=== PATIENT | female | born 1980 | race Caucasian/White ===

== ENCOUNTER 2018-08-22 14:31 | Emergency (ER) | payer SELFPAY ==
[~2018-08-22] VITALS: Ht 170.2 cm; Wt 139.7 kg
[2018-08-22] MEDS ORDERED: IV NORMAL SALINE 500ML 500 ML IV SCH (14:45)
--- NOTE | 2018-08-22 14:53 | PHYS DOC ---
Past History Past Medical History: Asthma Past Surgical History: , Tubal ligation Smoking: Cigarettes Alcohol Use: None Drug Use: None Adult General Chief Complaint Chief Complaint: VAGINAL BLEEDING HPI HPI Patient is a 38 year old female who presents with vaginal bleeding. This is been getting worse over the past 4 days. Patient has a history of endometriosis and so has irregular and occasionally heavy vaginal bleeding however this is the worst in both duration as well as volume that it has ever been. Patient denies being on any control, denies being on any blood thinners to include NSAIDs. She reports feeling lightheaded and weak with standing up. Has not had any syncopal event. Denies any rashes or bruising.[] Review of Systems Review of Systems Constitutional: Denies fever or chills [] Eyes: Denies change in visual acuity, redness, or eye pain [] HENT: Denies nasal congestion or sore throat [] Respiratory: Denies cough or shortness of breath [] Cardiovascular: No chest pain or palpitations[] GI: Denies abdominal pain, nausea, vomiting, bloody stools or diarrhea [] : Denies dysuria or hematuria, see history of present illness[] Musculoskeletal: Denies back pain or joint pain [] Integument: Denies rash or skin lesions [] Neurologic: Denies headache, focal weakness or sensory changes [] Endocrine: Denies polyuria or polydipsia [] All other systems were reviewed and found to be within normal limits, except as documented in this note. Current Medications Current Medications Current Medications Medications (Trade) Dose Ordered Sig/[facility] Start Time Stop Time Status Last Admin Dose Admin Sodium Chloride 500 ml @ 500 mls/hr Q1H 08/22/18 14:45 UNV Physical Exam Physical Exam Constitutional: Well developed, well nourished, mild discomfort, non-toxic appearance. [] HENT: Normocephalic, atraumatic, bilateral external ears normal, oropharynx moist, no oral exudates, nose normal. [] Eyes: PERRLA, EOMI, conjunctiva normal, no discharge. [] Neck: Normal range of motion, no tenderness, supple, no stridor. [] Cardiovascular:Heart rate regular rhythm, no murmur [] Lungs & Thorax: Bilateral breath sounds clear to auscultation [] Abdomen: Bowel sounds normal, soft, no tenderness, no masses, no pulsatile masses. : External genitalia: Normal, no abscess. Vaginal vault: Blood and clot in the vault. This was evacuated. Cervix, retroflexed cervix, slow trickle of blood from the cervix,[] Skin: Warm, dry, no erythema, no rash, pale color. [] Back: No tenderness, no CVA tenderness. [] Extremities: No tenderness, no cyanosis, no clubbing, ROM intact, no edema. [] Neurologic: Alert and oriented X 3, normal motor function, normal sensory function, no focal deficits noted. [] Psychologic: Affect normal, judgement normal, mood normal. [] EKG EKG [] Radiology/Procedures Radiology/Procedures Pelvic and transvaginal ultrasound History: Heavy menstrual bleeding Comparison: None. Findings: Multiple transabdominal sonographic images of the pelvis are submitted. Uterus measured 13.1 x 7.3 x 6.7 cm. Ovaries are not seen. Transvaginal ultrasound: Multiple transvaginal sonographic images of the pelvis are submitted. No free fluid is demonstrated. There is nabothian cysts. Endometrium is thickened about 3.2 cm, heterogeneous appearance. Right ovary measured 3.7 x 2.7 x 2.2 cm with normal low resistance vascularity. Left ovary could not be visualized. Impression: 1. There is thickened endometrium about 3.7 cm, could be due to hyperplasia, neoplasm not excludable. Component of echogenicity in the endometrial cavity may be due to blood products. 2. Uterus is enlarged. Left ovary could not be visualized.[] Course & Med Decision Making Course & Med Decision Making Pertinent Labs and Imaging studies reviewed. (See chart for details) ED course: Patient arrived, was placed in bed, tolerated exam well. Due to the bleeding and the tachycardia patient was typed and screened for blood products and she is willing to receive them. She was given a small bolus of IV fluids for the elevated heart rate. This didn't improve her heart rate to the 90s to low 100s. After the return of the lab and imaging findings these were discussed with the patient as well as consultation was made with [employer]. This consultation process was complicated by a personal and coverage issues and ultimately contacted the hospitalist after the [employer]AL[employer] MANAGER wanted the patient reevaluated in [facility] ER when appropriate and equivalent workup had been completed here at [facility]. The hospitalist service graciously accepted the patient. However at approximately 1730 new Information came across that the patient would be directly admitted to the operating room. Patient has been kept nothing by mouth during her emergency department stay. Medical decision making: This appears to be a case of heavy vaginal bleeding that has decreased the patient's hemoglobin today to 8.5. She needs further resources than are available at [facility], specifically [facility], and so has been transferred to a higher level of care.[] Dragon Disclaimer Dragon Disclaimer This electronic medical record was generated, in whole or in part, using a voice recognition dictation system. Departure Departure: Impression: Primary Impression: Vaginal bleeding Additional Impression: Anemia Disposition: 05 XFER OTHER Problem Qualifiers Additional Impression: Anemia Anemia type: unspecified type Qualified Codes: D64.9 - Anemia, unspecified MATT COOL DO Aug 22, 2018 14:53
[2018-08-22 15:05] LABS: BASO # 0.1 x10^3/uL (0.0-0.2); BASO % 1 % (0-3); EOS # 0.2 x10^3/uL (0.0-0.7); EOS % 1 % (0-3); HEMATOCRIT 25.2 % (36.0-47.0); HEMOGLOBIN 8.5 g/dL (12.0-15.5); LYMPH # 3.6 x10^3/uL (1.0-4.8); LYMPH % 25 % (24-48); MEAN CORPUSCULAR HEMOGLOBIN 29 pg (25-35); MEAN CORPUSCULAR HGB CONC 34 g/dL (31-37); MEAN CORPUSCULAR VOLUME 86 fL (79-100); MONO # 0.8 x10^3/uL (0.0-1.1); MONO % 5 % (0-9); NEUT # 9.7 x10^3uL (1.8-7.7); NEUT % 67 % (31-73); PLATELET COUNT 538 x10^3/uL (140-400); RED BLOOD COUNT 2.93 x10^6/uL (3.50-5.40); RED CELL DISTRIBUTION WIDTH 13.2 % (11.5-14.5); WHITE BLOOD COUNT 14.3 x10^3/uL (4.0-11.0)
[2018-08-22 15:20] LABS: PREG TEST PT QUAL NEGATIVE (NEG)
--- NOTE | 2018-08-22 15:47 | RAD ---
Pelvic and transvaginal ultrasound History: Heavy menstrual bleeding Comparison: None. Findings: Multiple transabdominal sonographic images of the pelvis are submitted. Uterus measured 13.1 x 7.3 x 6.7 cm. Ovaries are not seen. Transvaginal ultrasound: Multiple transvaginal sonographic images of the pelvis are submitted. No free fluid is demonstrated. There is nabothian cysts. Endometrium is thickened about 3.2 cm, heterogeneous appearance. Right ovary measured 3.7 x 2.7 x 2.2 cm with normal low resistance vascularity. Left ovary could not be visualized. Impression: 1. There is thickened endometrium about 3.7 cm, could be due to hyperplasia, neoplasm not excludable. Component of echogenicity in the endometrial cavity may be due to blood products. 2. Uterus is enlarged. Left ovary could not be visualized. Electronically signed by: Jose Ireland MD (08/22/2018 3:43 PM) [id number]
[2018-08-22 16:00] VITALS: BP 145/80
[2018-08-22 16:09] LABS: BILIRUBIN,URINE NEG (NEG); CLARITY,URINE CLEAR; COLOR,URINE YELLOW; GLUCOSE,URINE NEG (NEG); NITRITE,URINE NEG (NEG); UROBILINOGEN,URINE 1 mg/dL (0.2 mg/dL)
[2018-08-22 16:10] LABS: BACTERIA,URINE 0 /HPF (0-FEW); HYALINE CASTS, URINE OCC /HPF; RBC,URINE 0 /HPF (0-2); SQUAMOUS EPITHELIAL CELL,UR OCC /LPF; WBC,URINE OCC /HPF (0-4)
== END 2018-08-22 17:40 | disposition short-term general hospital (02) ==
LOC: ER 14:31
DX: N93.8 Other specified abnormal uterine and vaginal bleeding (principal); D64.9 Anemia, unspecified; R42 Dizziness and giddiness; J45.909 Unspecified asthma, uncomplicated; F17.210 Nicotine dependence, cigarettes, uncomplicated; Z98.890 Other specified postprocedural states; Z98.51 Tubal ligation status
CPT/HCPCS: 36415; 76830; 76856; 81001; 84703; 85025; 85610; 86850; 86900; 86901; 96360; 96361; 99285; J7040; 87491; 87591; 99284-25